=== PATIENT | female | born 1980 | race Caucasian/White ===

== ENCOUNTER 2017-01-06 18:00 | Emergency (ER) | payer OTHER ==
[2017-01-06 18:11] VITALS: BP 126/81
--- NOTE | 2017-01-06 19:15 | UC ---
Complaint Female HPI - HPI Summary HPI Summary: Urinary frequency, urgency, burning starting 2 days ago. Feels like past UTIs. Denies fever, vaginal symptoms, hx of STIs, was last tested 8 months ago and has been in monogamous relationship since then. Took azo prior to coming to clinic. - History Of Current Complaint Chief Complaint: UCGU Stated Complaint: POSS UTI Time Seen by Provider: 01/06/17 18:45 Hx Obtained From: Patient Hx Last Menstrual Period: 5 weeks ago ?: No Onset/Duration: Gradual Onset, Lasting Days Timing: Constant Severity Initially: Mild Severity Currently: Moderate Character: Burning Aggravating Factor(s): Urination Associated Signs And Symptoms: Positive: Negative - Allergies/Home Medications Allergies/Adverse Reactions: Allergies Allergy/AdvReac Type Severity Reaction Status Date / Time No Known Allergies Allergy Verified 01/06/17 18:11 Home Medications: Home Medications Desogestrel-Ethinyl Estradiol [Mircette 0.15-0.02/0.01 mg (09/01)] 1 tab PO DAILY 01/06/17 [History Confirmed 01/06/17] PMH/Surg Hx/FS Hx/Imm Hx Endocrine History Of: Denies: Diabetes, Thyroid Disease, Hyperthyroidism, Hypothyroidism, Dyslipidemia Cardiovascular History Of: Denies: Cardiac Disorders, Hypertension, Pacemaker/ICD Respiratory History Of: Denies: COPD, Asthma, Bronchitis, Pneumonia, Pulmonary Embolism GI/ History Of: Denies: Gastroesophageal Reflux, Ulcer, Gastrointestinal Bleed, Gall Bladder Disease, Kidney Stones, Diverticulitis, Renal Disease, Urosepsis Neurological History Of: Denies: TIA, CVA, Dementia, Seizures, Migraine Psychological History Of: Denies: Anxiety, Depression, Bipolar Disorder, Schizophrenia, Post Traumatic Stress Disorder Cancer History Of: Denies: Lung Cancer, Colorectal Cancer, Breast Cancer, Prostate Cancer, Cervical Cancer Other History Of: Negative For: HIV, Hepatitis B, Hepatitis C - Surgical History Surgical History: Yes Surgery Procedure, Year, and Place: [facility] - Family History Known Family History: Positive: None, Cardiac Disease, Hypertension, Other - ovarian cancer - Social History Alcohol Use: None Substance Use Type: None Smoking Status (MU): Never Smoked Tobacco - Immunization History Vaccination Up to Date: Yes Review of Systems Constitutional: Negative Skin: Negative Eyes: Negative ENT: Negative Respiratory: Negative Cardiovascular: Negative Gastrointestinal: Negative Genitourinary: Dysuria, Frequency, Urgency Motor: Negative Neurovascular: Negative Musculoskeletal: Negative Neurological: Negative Psychological: Negative All Other Systems Reviewed And Are Negative: Yes Physical Exam Triage Information Reviewed: Yes Appearance: Well-Appearing, No Pain Distress, Thin Vital Signs: Initial Vital Signs Temp 99.8 F 01/06/17 18:08 Pulse 72 01/06/17 18:08 Resp 16 01/06/17 18:08 BP 126/81 01/06/17 18:08 Pulse Ox 100 01/06/17 18:08 Vital Signs Reviewed: Yes Eye Exam: Normal Eyes: Positive: Conjunctiva Clear ENT Exam: Normal ENT: Positive: Normal ENT inspection, Hearing grossly normal, Pharynx normal, TMs normal Dental Exam: Normal Neck exam: Normal Neck: Positive: Supple, Nontender, No Lymphadenopathy Respiratory Exam: Normal Respiratory: Positive: Chest non-tender, Lungs clear, Normal breath sounds, No respiratory distress, No accessory muscle use Cardiovascular Exam: Normal Cardiovascular: Positive: RRR, No Murmur Abdomen Description: Positive: Nontender, Soft. Negative: CVA Tenderness (R), CVA Tenderness (L) Musculoskeletal Exam: Normal Neurological Exam: Normal Neurological: Positive: Alert Psychological Exam: Normal Skin Exam: Normal Complaint Female Dx - Differential Dx/Diagnosis Provider Diagnoses: UTI Discharge - Discharge Plan Condition: Stable Disposition: HOME Prescriptions: Nitrofurantoin Monohyd Macro [Macrobid] 100 mg PO BID #10 cap Patient Education Materials: Urinary Tract Infection in Women (ED) Referrals: Ignacio Potter MD [Primary Care Provider] - Additional Instructions: Because of your recent antibiotics, I strongly recommend you see your primary care provider for a recheck if you develop any diarrhea from this medication.
--- NOTE | 2017-01-09 14:34 | UC ---
Progress - Progress Note Progress Note: notify pt NO UTI Have her stop her antibiotics recheck if still symptomatic
== END 2017-01-06 19:14 | disposition home or self-care (01) ==
LOC: UCEAST 18:00
DX: N39.0 Urinary tract infection, site not specified (principal); B96.89 Other specified bacterial agents as the cause of diseases classified elsewhere
CPT/HCPCS: 87086; 99212; G0463

== ENCOUNTER 2017-01-13 17:54 | Emergency (ER) | payer OTHER ==
[2017-01-13 18:31] VITALS: BP 120/82
--- NOTE | 2017-01-13 19:11 | UC ---
Abdominal Pain Female HPI - HPI Summary HPI Summary: The patient comes in today for: 1. Abdominal pain: Onset: 5-6 days ago. Palliative/provocative: Bowel movement today helped the pain. Standing up helps. Quality: Stabbing sharp pain at first, now it is a dull, throbbing. Region: Right lower quadrant. Severity: 3/10 Time: Constant. Associated symptoms: Fevers: None. LMP: 7 weeks ago. She is having some bleeding at this time. Vomiting: None. Nausea: Present. Last BM today--normal. * - History of Current Complaint Chief Complaint: UCAbdominalPain Stated Complaint: ABDOMINAL PAIN Time Seen by Provider: 01/13/17 19:03 Hx Obtained From: Patient Hx Last Menstrual Period: 11/25/16 Allergies/Adverse Reactions: Allergies Allergy/AdvReac Type Severity Reaction Status Date / Time No Known Allergies Allergy Verified 01/06/17 18:11 PMH/Surg Hx/FS Hx/Imm Hx Previously Healthy: No - Family planning/BCP Endocrine History Of: Denies: Diabetes, Thyroid Disease, Hyperthyroidism, Hypothyroidism, Dyslipidemia Cardiovascular History Of: Denies: Cardiac Disorders, Hypertension, Pacemaker/ICD, Myocardial Infarction , Congestive Heart Failure, Atrial Fibrillation, Deep Vein Thrombosis, Bleeding Disorders Respiratory History Of: Denies: COPD, Asthma, Bronchitis, Pneumonia, Pulmonary Embolism GI/ History Of: Denies: Gastroesophageal Reflux, Ulcer, Gastrointestinal Bleed, Gall Bladder Disease, Kidney Stones, Diverticulitis, Renal Disease, Urosepsis Neurological History Of: Denies: TIA, CVA, Dementia, Seizures, Migraine Psychological History Of: Reports: Depression Denies: Anxiety, Bipolar Disorder, Schizophrenia, Post Traumatic Stress Disorder Cancer History Of: Denies: Lung Cancer, Colorectal Cancer, Breast Cancer, Prostate Cancer, Cervical Cancer Other History Of: Negative For: HIV, Hepatitis B, Hepatitis C, Anticoagulant Therapy - Surgical History Surgical History: Yes Surgery Procedure, Year, and Place: [facility] - Family History Known Family History: Positive: Cardiac Disease, Hypertension, Other - ovarian cancer - Social History Occupation: Employed Full-time Alcohol Use: None Substance Use Type: None Smoking Status (MU): Never Smoked Tobacco - Immunization History Vaccination Up to Date: Yes Review of Systems Constitutional: Negative Eyes: Negative ENT: Negative, Sore Throat Respiratory: Negative Cardiovascular: Negative Gastrointestinal: Abdominal Pain Genitourinary: Negative All Other Systems Reviewed And Are Negative: Yes Physical Exam Triage Information Reviewed: Yes Appearance: Well-Appearing, No Pain Distress, Well-Nourished Vital Signs: Initial Vital Signs Temp 98.3 F 01/13/17 18:24 Pulse 68 01/13/17 18:24 Resp 18 01/13/17 18:24 BP 120/82 01/13/17 18:24 Pulse Ox 100 01/13/17 18:24 Vital Signs Reviewed: Yes Eyes: Positive: Conjunctiva Clear. Negative: Discharge ENT: Positive: Hearing grossly normal. Negative: Pharyngeal erythema, Nasal congestion, Nasal drainage, TM bulging, TM dull, TM red, Tonsillar swelling, Tonsillar exudate Dental: Negative: Gross Decay/Caries @, Dental Fracture @ Neck: Positive: Supple, Nontender, No Lymphadenopathy. Negative: Nuchal Rigidity Respiratory: Positive: Chest non-tender, Lungs clear, No respiratory distress, No accessory muscle use. Negative: Crackles, Wheezing Cardiovascular: Positive: RRR, No Murmur Abdomen Description: Positive: No Organomegaly, Soft. Negative: Nontender - Sh has minimal tenderness to deep palpation to the right lower quadrant., Distended , Guarding, Peritoneal Signs Musculoskeletal: Positive: Strength Intact, ROM Intact Neurological: Positive: Alert, Muscle Tone Normal Psychological: Positive: Age Appropriate Behavior, Consolable Skin: Negative: rashes, breakdown Diagnostics - Laboratory Diagnostic Studies Completed/Ordered: Urine screen: Specific gravity: 1.015. WBC: (-). Nitrite: (-). Blood: (3+). Protein: (-). Glucose: (-) Abd Pain Female Course/Dx - Course Course Of Treatment: Patient was told that there are many causes of abdominal pain--some benign and some life-theatening. She was also told that the benign conditions can present with remarkable symptoms where as the life-threatening symptoms may be benign appearing. For this reason, we rely on testing to help is determine how severe the problem is. However, we don't have the usual testing here that is used nor their timely results to make a diagnosis. For this reason, I recommended that she go to the ER. However, she has an appointment with her primary care provider tomorrow and wants to go home and see her primary care provider tomorrow for her follow-up evaluation. - Differential Dx/Diagnosis Provider Diagnoses: abdominal pain. Discharge - Discharge Plan Condition: Stable Disposition: AGAINST MEDICAL ADVICE Patient Education Materials: Acute Abdominal Pain (ED) Additional Instructions: If you are not going to the ER as recommended, please see your primary care provider as you have scheduled tomorrow. If you get worse, please go to the ER.
== END 2017-01-13 20:40 | disposition left against medical advice (07) ==
LOC: UCEAST 17:54
DX: R10.31 Right lower quadrant pain (principal); Z32.02 Encounter for pregnancy test, result negative; F32.9 Major depressive disorder, single episode, unspecified
CPT/HCPCS: 81003; 84702; 99211; G0463

== ENCOUNTER 2018-06-10 11:11 | Emergency (ER) | payer OTHER ==
[2018-06-10 11:24] VITALS: BP 118/83
--- NOTE | 2018-06-10 12:23 | UC ---
Laceration HPI - HPI Summary HPI Summary: 38-year-old white female walked into a tree. She has 2 small lacerations in the front top of her scalp behind the hairline. There was no loss of consciousness there is no complaint of neck pain. There is no significant past medical history. Vital signs are stable; there is no hypertension. - History Of Current Complaint Chief Complaint: UCLaceration Stated Complaint: HEAD LACERATION Time Seen by Provider: 06/10/18 12:00 Hx Last Menstrual Period: 05/25/18 Pain Intensity: 8 - Allergies/Home Medications Allergies/Adverse Reactions: Allergies Allergy/AdvReac Type Severity Reaction Status Date / Time No Known Allergies Allergy Verified 06/10/18 11:24 PMH/Surg Hx/FS Hx/Imm Hx - Additional Past Medical History Additional PMH: Patient's past medical history significant for depression; she sees Dr. Troncoso. 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 Other History Of: Negative For: HIV, Hepatitis B, Hepatitis C, Anticoagulant Therapy - Surgical History Surgical History: Yes Surgery Procedure, Year, and Place: [facility] - Family History Known Family History: Positive: None, Cardiac Disease, Hypertension, Other - ovarian cancer - Social History Alcohol Use: Occasionally Substance Use Type: None Smoking Status (MU): Never Smoked Tobacco - Immunization History Vaccination Up to Date: Yes Review of Systems Constitutional: Negative Skin: Negative, Other - 2 scalp lacerations behind hairline Eyes: Negative ENT: Negative Respiratory: Negative Cardiovascular: Negative Gastrointestinal: Negative Genitourinary: Negative Motor: Negative Neurovascular: Negative Musculoskeletal: Negative Neurological: Negative Psychological: Negative Is Patient Immunocompromised?: No All Other Systems Reviewed And Are Negative: Yes - Comments Additional Review of Systems Comments: A 12 point review of systems was completed and was significantly positive for scapl lacerations. The remainder of the review was negative except as stated above in the HPI. Physical Exam - Summary Physical Exam Summary: PHYSICAL EXAM: Appearance: The patient is well-appearing, is in no pain or distress, and is well-nourished. Eyes: Conjunctiva are clear. Pupils are equal and reactive to light and accommodation. Extra ocular muscle movement is intact. ENT: The hearing is grossly normal, the pharynx is normal, and the TMs are normal. There is no muffled or hoarse voice. No stridor. Neck: The neck is supple and there is no lymphadenopathy. Respiratory: The chest is nontender to palpation and without crepitus. The lungs are clear, there are normal breath sounds, and there is no respiratory distress. No wheezes, rales or rhonchi. Cardiovascular: Heart sounds reveal a regular rate and rhythm. There are no clicks, rubs or murmurs. There are no carotid bruits or thrills. Circulation is grossly intact. Abdomen: The abdomen is soft and nontender. There is no organomegaly. Bowel sounds are present and within normal limits. No point tenderness at McBurneys point. Musculoskeletal: Strength is intact. The patient moves all extremities. x. Neurological: The patient is alert. Motor and sensory are examination grossly intact. Speech is normal. Psychological: The patient displays age appropriate behavior Skin: Negative for rashes. HEAD: 2 small, superficial scalp lacerations. Triage Information Reviewed: Yes Vital Signs: Initial Vital Signs Temp 98.3 F 06/10/18 11:19 Pulse 81 06/10/18 11:19 Resp 18 06/10/18 11:19 BP 118/83 06/10/18 11:19 Pulse Ox 100 06/10/18 11:19 Laceration Repair - Laceration Repair 1 Procedure Summary: LACERATION: The lacerations is located on the scalp behind the hairline, midline. Lac # 1: On laceration is triangular. It has good approximation and is not bleeding at this time. Lac # 2: The second laceration is a simple linear laceration approximately 1 cm. It has good approximation and hemostasis. The laceration area was cleaned, prepped, and draped in the usual sterile fashion. Irrigation under gentle pressure was carried out using 100 cc of normal saline. The wounds were anesthetized with lidocaine 2% with epinephrine. Prior to closure it was irrigated with 100 cc of normal saline under pressure. No foreign bodies were visualized. The margins did not require debridement. Inspection of the laceration after closure showed the wound edges to be well approximated and there was good hemostasis. [address] in the triangular laceration # 1. One staple closed the second laceration. Antibiotic ointment was applied and the area was dressed. [place] will be removed in 7 days. Laceration Course/Dx - Course/Dx Course Of Treatment: 38-year-old with 2 scalp lacerations. One was triangular and required 2 elio to close. The other was a 1 cm linear was closed with one staple. There was good approximation and hemostasis. Remainder of the physical examination was unremarkable. She will have these elio removed in 7 days. Patient voiced understanding. - Differential Dx - Laceration/Wound Differental Diagnoses: Abrasion, Laceration Provider Diagnoses: two scalp lacerations Discharge - Sign-Out/Discharge Documenting (check all that apply): Patient Departure All imaging exams completed and their final reports reviewed: No Studies - Discharge Plan Condition: Stable Disposition: HOME Patient Education Materials: Staple Care (ED) Referrals: Maria Elena Troncoso MD [Primary Care Provider] - Additional Instructions: WE DISCUSSED: PLEASE SEEK CARE AT THE EMERGENCY DEPARTMENT IF SYMPTOMS WORSEN OR IF NEW SYMPTOMS DEVELOP. FOLLOW UP WITH YOUR PRIMARY CARE PHYSICIAN IF CONDITION CONTINUES BEYOND 3 DAYS WITHOUT IMPROVEMENT. YOUR DIAGNOSIS IS: 2 scalp lacerations Clean with soap and water; don't soak. Don't swim. Elio out in 7 days; recheck at any time for signs of infection. FOR PAIN AND/OR SLEEP: For pain: Ibuprofen (Motrin and other brand names) 400-600mg PLUS acetaminophen (Tylenol and other brand names) 500mg - 1000mg every 8 hours. Maximum is 3 doses a day. If this dosage is required for more than 5 days, you should re-check with your doctor. The combination of these two over-the- counter medications can be more effective than each one taken alone. Please check with the pharmacist if you have questions about your allergies to these medications. To help you sleep: If you feel as if you want to calm down and get sleepy, over the counter diphenhydramine (Benadryl and other brand names), 25 mg up to every 8 hours may be useful. Please check with the pharmacist if you have questions about your allergies to these medications. - Billing Disposition and Condition Condition: STABLE Disposition: Home
[2018-06-10] MEDS ORDERED: Lidocaine 2% EPI 1:200000 MPF* 10 ML VIAL INJ ONE (12:35)
[2018-06-10] MEDS ORDERED: Lidocaine 2% W/EPI 1:100,000* 20 ML MDV INJ ONE (12:42)
== END 2018-06-10 13:05 | disposition home or self-care (01) ==
LOC: UCEAST 11:11
DX: S01.01XA Laceration without foreign body of scalp, initial encounter (principal); W22.09XA Striking against other stationary object, initial encounter; Y93.01 Activity, walking, marching and hiking; Y92.9 Unspecified place or not applicable
CPT/HCPCS: 12001; 99211; G0463

== ENCOUNTER 2018-06-17 13:03 | Emergency (ER) | payer OTHER ==
[2018-06-17 14:07] VITALS: BP 136/81
--- NOTE | 2018-06-17 14:21 | UC ---
Laceration HPI - HPI Summary HPI Summary: Patient returns for removal of 3 elio that I put into her scalp 7 days ago. Patient has no complaints. Nurse's note: pt seen here 06/10/18 for a laceration she sustained to the top of her head. She states 3 elio were placed. She is here to have them removed. - History Of Current Complaint Chief Complaint: [place] Stated Complaint: SUTURE REMOVAL Time Seen by Provider: 06/17/18 13:50 Hx Last Menstrual Period: 05/25/18 Pain Intensity: 0 - Allergies/Home Medications Allergies/Adverse Reactions: Allergies Allergy/AdvReac Type Severity Reaction Status Date / Time No Known Allergies Allergy Verified 06/17/18 14:07 PMH/Surg Hx/FS Hx/Imm Hx - Additional Past Medical History Additional PMH: Review of visit history: Noncontributory to present complaint Review of chronic conditions: Depression Medications and Allergies: No antihypertensive medications or allergies Family History: -CANCER -Denies hypertension, heart disease, stroke, diabetes. 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 Previously Healthy: Yes Other History Of: Negative For: HIV, Hepatitis B, Hepatitis C, Anticoagulant Therapy - Surgical History Surgical History: Yes Surgery Procedure, Year, and Place: [facility] - Family History Known Family History: Positive: None, Cardiac Disease, Hypertension, Other - ovarian cancer - Social History Alcohol Use: Occasionally Substance Use Type: None Smoking Status (MU): Never Smoked Tobacco - Immunization History Vaccination Up to Date: Yes Review of Systems Constitutional: Negative Skin: Negative Eyes: Negative ENT: Negative Respiratory: Negative Cardiovascular: Negative Gastrointestinal: Negative Genitourinary: Negative Motor: Negative Neurovascular: Negative Musculoskeletal: Negative Neurological: Negative Psychological: Negative Is Patient Immunocompromised?: No All Other Systems Reviewed And Are Negative: Yes Physical Exam - Summary Physical Exam Summary: Appearance: The patient is well-appearing, is in no pain or distress, and is well-nourished. Eyes: Conjunctiva are clear. Pupils are equal and reactive to light and accommodation. Extra ocular muscle movement is intact. ENT: The hearing is grossly normal, the pharynx is normal, and the TMs are normal. There is no muffled or hoarse voice. No stridor. Neck: The neck is supple and there is no lymphadenopathy. Respiratory: The chest is nontender to palpation and without crepitus. The lungs are clear, there are normal breath sounds, and there is no respiratory distress. No wheezes, rales or rhonchi. Cardiovascular: Heart sounds reveal a regular rate and rhythm. There are no clicks, rubs or murmurs. There are no carotid bruits or thrills. Circulation is grossly intact. Abdomen: The abdomen is soft and nontender. There is no organomegaly. Bowel sounds are present and within normal limits. No point tenderness at McBurneys point. Musculoskeletal: Strength is intact. The patient moves all extremities. x. Neurological: The patient is alert. Motor and sensory are examination grossly intact. Speech is normal. Psychological: The patient displays age appropriate behavior Skin: Negative for rashes. Wound site on scalp: [address] Easily removed with staple remover. Good approximation; no bleeding or sign of infection. Triage Information Reviewed: Yes Vital Signs: Initial Vital Signs Temp 98.7 F 06/17/18 14:03 Pulse 58 06/17/18 14:03 Resp 14 06/17/18 14:03 BP 136/81 06/17/18 14:03 Pulse Ox 100 06/17/18 14:03 Laceration Course/Dx - Course/Dx Course Of Treatment: Medications reviewed. Hypertension noted, on no anti hypertensive meds. Patient instructed to recheck blood pressure over the next month. Healthy 38-year-old female with 3 sutures in her scalp. Patient returns after one week with no complaints. 3 elio were removed; there was good approximation of the skin edges and hemostasis. - Differential Dx - Laceration/Wound Provider Diagnoses: Staple Removal Discharge - Sign-Out/Discharge Documenting (check all that apply): Patient Departure All imaging exams completed and their final reports reviewed: No Studies - Discharge Plan Condition: Stable Disposition: HOME Patient Education Materials: Laceration (DC) Referrals: Maria Elena Troncoso MD [Primary Care Provider] - Additional Instructions: WE DISCUSSED: PLEASE SEEK CARE AT THE EMERGENCY DEPARTMENT IF SYMPTOMS WORSEN OR IF NEW SYMPTOMS DEVELOP. FOLLOW UP WITH YOUR PRIMARY CARE PHYSICIAN IF CONDITION CONTINUES BEYOND 3 DAYS WITHOUT IMPROVEMENT. Three elio have been removed. The wound is close together. There is no bleeding or sign of infection. There are no restrictions with respect to swimming or other activity. Recheck for any increasing redness, pain, or inability to control bleeding. - Billing Disposition and Condition Condition: STABLE Disposition: Home
== END 2018-06-17 14:23 | disposition home or self-care (01) ==
LOC: UCEAST 13:03
DX: S01.01XD Laceration without foreign body of scalp, subsequent encounter (principal); X58.XXXD Exposure to other specified factors, subsequent encounter
CPT/HCPCS: 99211; G0463